=== PATIENT | female | born 1935 | race African-American/Black ===

== ENCOUNTER 2018-12-13 15:38 | Emergency (ER) | payer OTHER ==
[~2018-12-13] VITALS: Ht 165.1 cm; Wt 70.8 kg
[2018-12-13 15:43] VITALS: BP 142/67; Ht 165.1 cm; Wt 70.8 kg
== END 2018-12-13 18:09 | disposition left against medical advice (07) ==
LOC: ED 15:38
DX: Z53.21 Procedure and treatment not carried out due to patient leaving prior to being seen by health care provider (principal)